=== PATIENT | male | born 2000 ===

== ENCOUNTER 2022-02-10 20:48 | Emergency (ER) | payer SELFPAY ==
[~2022-02-10] VITALS: Ht 185.4 cm; Wt 90.7 kg
[2022-02-10] MEDS ORDERED: AMOCLA875 PO (21:25)
== END 2022-02-10 21:48 | disposition home or self-care (01) ==
LOC: ER 20:48
DX: K04.7 Periapical abscess without sinus (principal)
CPT/HCPCS: A9270